=== PATIENT | male | born 1980 | race African-American/Black ===

== ENCOUNTER 2022-01-19 12:06 | Inpatient (IN) ==
[2022-01-19 12:47] LABS: Basophils % 0.2 %; Hematocrit 48.6 % (37.5-50.1); Hemoglobin 16.6 g/dL (12.9-16.9); Immature Granulocytes % 0.2 % (0-4); Lymphocytes # 2.8 K/mcL (0.6-4.6); Lymphocytes % 28.7 %; Mean Corpuscular HGB Conc 34.2 g/dL (31.6-35.5); Mean Corpuscular Hemoglobin 29.4 pg (28.0-33.3); Mean Platelet Volume 11.8 fL (9.4-12.4); Monocytes # 0.4 K/mcL (0.0-1.3); Monocytes % 4.2 %; Neutrophils # 6.6 K/mcL (1.6-8.9); Platelet Count 226 K/mcL (140-400); Red Blood Count 5.65 M/mcL (4.19-5.50); Red Cell Distribution Width 13.2 % (11.5-14.5); Segmented Neutrophils % 66.7 %; White Blood Count 9.8 K/mcL (4.3-11.1)
[2022-01-19] MEDS ORDERED: Iopamidol - 370 500 ML MLS IVP ONE (12:51)
[2022-01-19] MEDS ORDERED: Ondansetron 4 MG/2 ML VIAL IVP PRN (12:52)
[2022-01-19] MEDS ORDERED: 0.9 % Sodium Chloride 1,000 ML IV ONE (12:52)
[2022-01-19 13:15] LABS: INR 1.2; Prothrombin Time 13.6 Seconds (9.4-12.1)
[2022-01-19 13:17] LABS: Activated Partial Thrombo Time 37.5 Seconds (26.0-36.0)
[2022-01-19 13:18] LABS: Alanine Aminotransferase 25 Units/L (7-52); Albumin 4.6 g/dL (3.5-5.7); Albumin/Globulin Ratio 1.2 (1.1-2.2); Alkaline Phosphatase 49 Units/L (34-104); Aspartate Amino Transferase 29 Units/L (13-39); BUN/Creatinine Ratio 12 (6-26); Bilirubin,Direct 0.2 mg/dL (0.0-0.2); Bilirubin,Indirect 0.8 mg/dL (0.0-1.0); Blood Urea Nitrogen 11 mg/dL (6-20); Calcium 9.8 mg/dL (8.6-10.3); Carbon Dioxide 22 mEq/L (23-29); Chloride 105 mEq/L (98-107); Globulin 3.8 g/dL (2.4-3.5); Glucose 131 mg/dL (70-105); Lipase 12 Units/L (11-82); Osmolality,Calculated 291 (280-300); Potassium 3.5 mEq/L (3.5-5.1); Sodium 140 mEq/L (136-145); Total Protein 8.4 g/dL (6.4-8.9); eGFR For African Americans > 60 (> 60); eGFR For Non-African Americans > 60 (> 60)
[2022-01-19 14:04] LABS: Influenza A PCR Negative (Negative); Influenza B PCR Negative (Negative); Resp. Syncytial Virus PCR Negative (Negative)
[2022-01-19 14:06] LABS: SARS-CoV-2 by PCR (In House) Negative (Negative)
[2022-01-19] MEDS ORDERED: Metoclopramide 10 MG/2 ML VIAL IVP ONE (14:49)
[2022-01-19] MEDS ORDERED: Naloxone 0.4 MG/ML INJ IVP PRN (15:17)
[2022-01-19 15:46] LABS: Bacteria,Urine Few per hpf (None-Few); Bilirubin,Urine Negative (Negative); Blood,Urine Negative (Negative); Clarity,Urine Clear (Clear); Color,Urine Light-Yellow (Yellow); Glucose,Urine (UA) Normal (Normal); Ketones,Urine 40 mg/dL (Negative); Leukocyte Esterase,Urine Negative (Negative); Mucus,Urine Few per lpf (None-Few); Nitrite,Urine Negative (Negative); Protein,Urine 100 mg/dL (Neg-Trace); RBC,Urine 0-3 per hpf (0-3); Specific Gravity,Urine > 1.030 (1.010-1.025); Squamous Epithelial Cell,Urine Few per hpf (None-Few); Urobilinogen,Urine Normal (Normal); WBC,Urine 0-3 per hpf (0-3)
[2022-01-19] MEDS ORDERED: Ketorolac 30 MG/ML VIAL IVP ONE (18:13)
[2022-01-19] MEDS: *HR* Promethazine 25 MG/ML VIAL IM PRN (18:39)
[2022-01-19] MEDS: *HR* Heparin 5,000 UNIT/ML VIAL SQ SCH (18:41)
[2022-01-19] MEDS: 0.9 % Sodium Chloride 1,000 ML IVC SCH (18:42)
[2022-01-20] MEDS: Acetaminophen 325 MG TABLET PO PRN ×2 (00:13→20:05)
[2022-01-20 03:36] LABS: Basophils % 0.3 %; Eosinophils # 0.1 K/mcL (0.0-0.6); Eosinophils % 0.8 %; Hematocrit 42.4 % (37.5-50.1); Immature Granulocytes % 0.2 % (0-4); Lymphocytes # 3.3 K/mcL (0.6-4.6); Lymphocytes % 31.9 %; Mean Corpuscular HGB Conc 33.7 g/dL (31.6-35.5); Mean Corpuscular Hemoglobin 29.7 pg (28.0-33.3); Mean Platelet Volume 12.2 fL (9.4-12.4); Monocytes # 0.8 K/mcL (0.0-1.3); Monocytes % 7.4 %; Neutrophils # 6.2 K/mcL (1.6-8.9); Platelet Count 190 K/mcL (140-400); Red Blood Count 4.82 M/mcL (4.19-5.50); Red Cell Distribution Width 13.5 % (11.5-14.5); Segmented Neutrophils % 59.4 %; White Blood Count 10.4 K/mcL (4.3-11.1)
[2022-01-20 03:49] LABS: Hemoglobin 14.3 g/dL (12.9-16.9)
[2022-01-20 03:52] LABS: BUN/Creatinine Ratio 10 (6-26); Blood Urea Nitrogen 10 mg/dL (6-20); Carbon Dioxide 24 mEq/L (23-29); Chloride 106 mEq/L (98-107); Glucose 117 mg/dL (70-105); Magnesium 2.1 mg/dL (1.6-2.6); Osmolality,Calculated 290 (280-300); Phosphorous 2.8 mg/dL (2.7-4.5); Sodium 140 mEq/L (136-145); eGFR For African Americans > 60 (> 60); eGFR For Non-African Americans > 60 (> 60)
[2022-01-20] MEDS: *HR* Heparin 5,000 UNIT/ML VIAL SQ SCH ×2 (03:54→18:05)
[2022-01-20] MEDS: 0.9 % Sodium Chloride 1,000 ML IVC SCH (07:16)
[2022-01-20 08:39] LABS: Estimated Average Glucose 111 mg/dl; Hemoglobin A1C 5.5 %
[2022-01-20] MEDS: amLODIPine 5 MG TABLET PO SCH (11:59)
[2022-01-20] MEDS: Ondansetron 4 MG/2 ML VIAL IVP PRN (15:06)
[2022-01-21] MEDS: *HR* Heparin 5,000 UNIT/ML VIAL SQ SCH ×2 (03:52→16:20)
[2022-01-21 05:43] LABS: BUN/Creatinine Ratio 9 (6-26); Blood Urea Nitrogen 8 mg/dL (6-20); Carbon Dioxide 26 mEq/L (23-29); Chloride 104 mEq/L (98-107); Glucose 91 mg/dL (70-105); Osmolality,Calculated 284 (280-300); Potassium 3.4 mEq/L (3.5-5.1); Sodium 138 mEq/L (136-145); eGFR For African Americans > 60 (> 60); eGFR For Non-African Americans > 60 (> 60)
[2022-01-21] MEDS: amLODIPine 5 MG TABLET PO SCH (07:59)
[2022-01-21] MEDS: Acetaminophen 325 MG TABLET PO PRN ×2 (08:33→16:04)
[2022-01-21] MEDS: Ondansetron 4 MG/2 ML VIAL IVP PRN (08:34)
[2022-01-21] MEDS: hydroCHLOROthiazide 25 MG TABLET PO SCH (17:41)
[2022-01-22] MEDS: Ondansetron 4 MG/2 ML VIAL IVP PRN ×3 (00:09→23:03)
[2022-01-22] MEDS: Acetaminophen 325 MG TABLET PO PRN (00:09)
[2022-01-22] MEDS: *HR* Heparin 5,000 UNIT/ML VIAL SQ SCH ×2 (05:19→18:34)
[2022-01-22 05:58] LABS: Basophils % 0.1 %; Eosinophils % 0.3 %; Hematocrit 52.2 % (37.5-50.1); Immature Granulocytes % 0.3 % (0-4); Lymphocytes # 2.3 K/mcL (0.6-4.6); Lymphocytes % 30.3 %; Mean Corpuscular HGB Conc 33.9 g/dL (31.6-35.5); Mean Corpuscular Hemoglobin 29.1 pg (28.0-33.3); Mean Corpuscular Volume 85.7 fL (83.0-100.0); Mean Platelet Volume 11.2 fL (9.4-12.4); Monocytes # 0.5 K/mcL (0.0-1.3); Monocytes % 6.1 %; Neutrophils # 4.8 K/mcL (1.6-8.9); Platelet Count 231 K/mcL (140-400); Red Blood Count 6.09 M/mcL (4.19-5.50); Segmented Neutrophils % 62.9 %; White Blood Count 7.7 K/mcL (4.3-11.1)
[2022-01-22 06:01] LABS: Hemoglobin 17.7 g/dL (12.9-16.9)
[2022-01-22 06:41] LABS: BUN/Creatinine Ratio 8 (6-26); Blood Urea Nitrogen 8 mg/dL (6-20); Calcium 10.1 mg/dL (8.6-10.3); Carbon Dioxide 24 mEq/L (23-29); Chloride 99 mEq/L (98-107); Glucose 107 mg/dL (70-105); Osmolality,Calculated 277 (280-300); Potassium 3.4 mEq/L (3.5-5.1); Sodium 134 mEq/L (136-145); eGFR For African Americans > 60 (> 60); eGFR For Non-African Americans > 60 (> 60)
[2022-01-22] MEDS: amLODIPine 5 MG TABLET PO SCH ×2 (07:49→10:28)
[2022-01-22] MEDS: *HR* Promethazine 25 MG/ML VIAL IM PRN ×2 (08:12→21:18)
[2022-01-22] MEDS ORDERED: 0.9 % Sodium Chloride 500 ML ONE (08:34)
[2022-01-22] MEDS: predniSONE 20 MG TABLET PO SCH (10:28)
[2022-01-22] MEDS: 0.9 % Sodium Chloride 1,000 ML IVC SCH (15:27)
[2022-01-22] MEDS: hydroCHLOROthiazide 25 MG TABLET PO SCH (18:34)
[2022-01-22 23:18] VITALS: O2SAT 95
[2022-01-23] MEDS: *HR* Heparin 5,000 UNIT/ML VIAL SQ SCH (04:33)
[2022-01-23] MEDS: 0.9 % Sodium Chloride 1,000 ML IVC SCH (04:33)
[2022-01-23 07:21] VITALS: BP 150/93; PULSE 77; TEMP 98.1
[2022-01-23 07:23] LABS: Basophils % 0.1 %; Eosinophils % 0.2 %; Hematocrit 52.3 % (37.5-50.1); Hemoglobin 17.8 g/dL (12.9-16.9); Immature Granulocytes % 0.3 % (0-4); Lymphocytes # 3.3 K/mcL (0.6-4.6); Lymphocytes % 32.2 %; Mean Corpuscular Hemoglobin 29.3 pg (28.0-33.3); Mean Corpuscular Volume 86.2 fL (83.0-100.0); Mean Platelet Volume 11.5 fL (9.4-12.4); Monocytes # 0.7 K/mcL (0.0-1.3); Monocytes % 6.9 %; Neutrophils # 6.3 K/mcL (1.6-8.9); Platelet Count 243 K/mcL (140-400); Red Blood Count 6.07 M/mcL (4.19-5.50); Red Cell Distribution Width 13.1 % (11.5-14.5); Segmented Neutrophils % 60.3 %; White Blood Count 10.4 K/mcL (4.3-11.1)
[2022-01-23 07:52] LABS: BUN/Creatinine Ratio 13 (6-26); Blood Urea Nitrogen 14 mg/dL (6-20); Calcium 9.5 mg/dL (8.6-10.3); Carbon Dioxide 24 mEq/L (23-29); Chloride 99 mEq/L (98-107); Glucose 94 mg/dL (70-105); Magnesium 2.1 mg/dL (1.6-2.6); Osmolality,Calculated 280 (280-300); Phosphorous 4.1 mg/dL (2.7-4.5); Potassium 3.3 mEq/L (3.5-5.1); Sodium 135 mEq/L (136-145); eGFR For African Americans > 60 (> 60); eGFR For Non-African Americans > 60 (> 60)
[2022-01-23] MEDS: amLODIPine 5 MG TABLET PO SCH (09:54)
[2022-01-23] MEDS: predniSONE 20 MG TABLET PO SCH (09:54)
[2022-01-23] MEDS: Ondansetron 4 MG/2 ML VIAL IVP PRN (14:27)
== END 2022-01-23 14:49 | disposition home or self-care (01) | DRG 155 ==
LOC: 3BNU 12:06 → EMEROOARM 12:06 → SUATTDRO 16:05 → 3BNU 16:50
PROVIDERS: ADMIT Student in an Organized Health Care Education/Training Program; ATTEND Internal Medicine